=== PATIENT | male | born 1995 | race Two or more races ===

== ENCOUNTER 2024-02-13 12:49 | Day surgery (SDC) | payer SELFPAY ==
[2024-02-13] MEDS: Ondansetron 4 MG/2 ML SDV IVPUSH ONE (13:22)
[2024-02-13] MEDS: HYDROmorphone 0.5 MG/0.5 ML Syringe IVPUSH ONE ×2 (13:23→14:39)
[2024-02-13] MEDS: Sodium Chloride 0.9% 1,000 ML IV ONE (13:24)
[2024-02-13] MEDS: Sodium Chloride 0.9% 10 ML Syringe FLUSH PRN (13:25)
[2024-02-13 13:34] LABS: BASOPHILS ABSOLUTE AUTO 0.1 K/mm3 (0.0-0.2); BASOPHILS PERCENT AUTO 0.3 % (0.0-1.0); EOSINOPHILS ABSOLUTE AUTO 0.1 K/mm3 (0.0-0.4); EOSINOPHILS PERCENT AUTO 0.8 % (0.0-6.0); HEMATOCRIT 44.1 % (42.0-52.0); HEMOGLOBIN 15.1 gm/dl (14.0-18.0); IMMATURE GRAN ABSOLUTE AUTO 0.07 K/mm3 (0.00-0.05); IMMATURE GRAN PERCENT AUTO 0.4 % (0.0-0.4); LYMPHOCYTES ABSOLUTE AUTO 2.2 K/mm3 (1.0-4.8); LYMPHOCYTES PERCENT AUTO 13.4 % (24.0-44.0); MEAN CORPUSCULAR HEMOGLOBIN 30.5 pg (28.0-32.0); MEAN CORPUSCULAR HGB CONC 34.2 g/dl (32.0-36.0); MEAN CORPUSCULAR VOLUME 89.1 fl (83.0-99.0); MEAN PLATELET VOLUME 8.7 fl (9.4-12.4); MONOCYTES PERCENT AUTO 6.3 % (0.0-8.0); NEUTROPHILS ABSOLUTE AUTO 12.8 K/mm3 (1.8-7.7); NEUTROPHILS PERCENT AUTO 78.8 % (41.0-71.0); PLATELET COUNT,PLT 304 K/mm3 (150-400); RED BLOOD CELL COUNT 4.95 M/mm3 (4.52-5.90); WHITE BLOOD CELL COUNT,WBC 16.29 K/mm3 (3.9-11.3)
[2024-02-13] MEDS: Iopamidol 755 Mg/ML 100 ML Bottle IVPUSH ONE (13:43)
[2024-02-13 14:02] LABS: A/G RATIO 1.1 (1-2); ALBUMIN 4.1 g/dl (3.4-5.0); ANION GAP 11.8 (5-15); BILIRUBIN TOTAL 1.1 mg/dL (0.2-1.0); BUN/CREATININE RATIO 14.2 (14-18); C-REACTIVE PROTEIN 0.4 mg/dL (<0.30); CALCIUM 9.3 mg/dL (8.5-10.1); CREATININE 1.2 mg/dL (0.7-1.3); EST CRCL DRUG DOSING (CG) 82.7 mL/min; MAGNESIUM 1.9 mg/dL (1.8-2.4); POTASSIUM,K 3.8 mEq/L (3.5-5.1); PROTEIN TOTAL,TP 7.9 g/dl (6.4-8.2)
[2024-02-13 14:25] LABS: APPEARANCE,URINE CLEAR (Clear); BILIRUBIN,URINE NEGATIVE (Negative); COLOR,URINE YELLOW (Yellow); GLUCOSE,URINE NEGATIVE (Negative); KETONES,URINE TRACE (Negative); LEUKOCYTE ESTERASE,URINE NEGATIVE (Negative); NITRITE,URINE NEGATIVE (Negative); OCCULT BLOOD,URINE NEGATIVE (Negative); PH,URINE 7.5 (5.0-8.0); PROTEIN,URINE NEGATIVE (Negative); UROBILINOGEN,URINE 0.2 (0.2-1.0)
[2024-02-13] MEDS ORDERED: Sodium Chloride 0.9% 10 ML Syringe FLUSH PRN (14:53)
[2024-02-13] MEDS: Lactated Ringers 1,000 ML IV SCH (15:04)
[2024-02-13] MEDS ORDERED: HYDROmorphone 0.5 MG/0.5 ML Syringe IVPUSH PRN (15:20)
[2024-02-13] MEDS: Levofloxacin/Dextrose 5%-Water 750 MG in Premix Bag 1 BAG IV ONE (15:20)
[2024-02-13] MEDS ORDERED: Ondansetron 4 MG/2 ML SDV IVPUSH PRN (15:20)
[2024-02-13] MEDS ORDERED: fentaNYL 100 MCG/2 ML SDV IVPUSH PRN (15:20)
[2024-02-13] MEDS: metroNIDAZOLE/Normal Saline 500 MG in Premix Bag 1 BAG IV ONE (15:21)
[2024-02-13] MEDS ORDERED: Succinylcholine 200 MG/10 ML MDV ONE (15:28)
[2024-02-13] MEDS ORDERED: Propofol 200 MG/20 ML SDV ONE ×2 (15:29→16:06)
[2024-02-13] MEDS ORDERED: fentaNYL 250 MCG/5 ML SDV ONE (15:29)
[2024-02-13] MEDS ORDERED: Phenylephrine 1% 10 MG/ML SDV ONE (15:32)
[2024-02-13] MEDS ORDERED: Lidocaine 1% 4 ML ONE (15:32)
[2024-02-13] MEDS ORDERED: Dexamethasone 4 MG/ML 5 ML MDV ONE (15:32)
[2024-02-13] MEDS ORDERED: Ondansetron 4 MG/2 ML SDV ONE (15:32)
[2024-02-13] MEDS ORDERED: Rocuronium 50 MG/5 ML Vial ONE (15:52)
[2024-02-13] MEDS ORDERED: Sugammadex Sodium 200 MG/2 ML VIAL IV ONE (15:54)
[2024-02-13] MEDS ORDERED: oxyCODONE 5 MG Tab PO PRN (16:26)
[2024-02-13] MEDS: Bupivacaine 0.5% 30 ML SDV ONE (16:35)
[2024-02-13] MEDS ORDERED: Ketorolac 15 MG/ML SDV IVPUSH PRN (16:52)
[2024-02-13] MEDS: Ketorolac 30 MG/ML SDV ONE (17:08)
== END 2024-02-13 18:22 | disposition home or self-care (01) ==
LOC: JD.ED 12:49 → EDSEX 12:49 → JD.SDS 15:36
PROVIDERS: ATTEND Surgery
DX: K35.80 Unspecified acute appendicitis (principal); Z88.0 Allergy status to penicillin; Z79.899 Other long term (current) drug therapy
CPT/HCPCS: 36415; 74177; 74177-26; 80053; 81003; 83735; 85025; 86140; 96361; 96374; 96375; 96376; 99285-25; J0330; J0665; J1100; J1170; J1836; J1885; J1956; J2371; J2405; J2704; J3010; J3490; J7030; J7120; Q9967